=== PATIENT | female | born 1955 ===

== ENCOUNTER 2020-10-27 06:00 | Outpatient (RCR) | payer MEDICARE, SELFPAY | END 2020-11-23 23:59 | disposition home or self-care (01) | LOC: GPT 06:00 | PROVIDERS: Family Provider Family Medicine; PCP Family Medicine; Referring Provider Family Medicine; Visit Provider Family Medicine | DX: M25.372 Other instability, left ankle (principal); M54.5 Low back pain; M51.17 Intervertebral disc disorders with radiculopathy, lumbosacral region; G60.9 Hereditary and idiopathic neuropathy, unspecified; G89.29 Other chronic pain; M89.29 Other disorders of bone development and growth, multiple sites | CPT/HCPCS: 97110; 97162; 97530; 97760 ==